=== PATIENT | female | born 1965 | race Caucasian/White ===

== ENCOUNTER 2022-03-23 22:34 | Emergency (ER) | payer OTHER ==
[2022-03-24 00:56] LABS: BASOPHIL 0.2 % (0-2); EOSINOPHIL 5.6 % (0-5); HCT 45.6 % (37.0-47.0); HGB 14.7 g/dl (12.5-16.0); LYMPHOCYTE 20.9 % (15-48); MCH 29.6 pg (25.0-31.0); MCHC 32.2 g/dL (32.0-36.0); MCV 91.9 fL (78.0-100.0); MONOCYTE 7.3 % (0-12); MPV 9.3 fL (6.0-9.5); NEUTROPHIL 65.7 % (41-80); NRBC 0; PLT 230 K/uL (150-400); RBC 4.96 M/uL (4.20-5.40); RDW 13.2 % (11.5-14.0); WBC 8.6 K/uL (4.0-10.5)
[2022-03-24 01:05] LABS: BILIRUBIN NEGATIVE (NEGATIVE); BLOOD TRACE-INTACT Ery/uL (NEGATIVE); CLARITY CLEAR (CLEAR); COLOR YELLOW (YELLOW); GLUCOSE (U) NORMAL (NORMAL); LEUKOCYTES TRACE Leu/uL (NEGATIVE); NITRITE NEGATIVE (NEGATIVE); PROTEIN NEGATIVE (NEGATIVE); SPECIFIC GRAVITY <=1.005 (1.001-1.030); UROBILINOGEN 0.2 mg/dL (0.2-1.0)
[2022-03-24 01:08] LABS: BACTERIA TRACE; URINARY WBC RARE
[2022-03-24 01:19] LABS: ALBUMIN 3.8 g/dL (3.4-5.0); BILIRUBIN - TOTAL 0.3 mg/dL (0.2-1.0); BUN/CREAT RATIO (CALC) 20.8 RATIO; CREATININE 0.77 mg/dL (0.51-0.95); GLOBULIN (CALCULATION) 3.8 g/dL; POTASSIUM 4.3 mmol/L (3.5-5.1); TOTAL PROTEIN 7.6 g/dL (6.4-8.2)
[2022-03-24 01:31] LABS: CORONAVIRUS 2019 SARS-COV-2 NEGATIVE (NEGATIVE); INFLUENZA A NAA NEGATIVE (NEGATIVE)
[2022-03-24] MEDS ORDERED: MEDROL 4MG DOSEP4 MG PO (02:20)
[2022-03-24] MEDS ORDERED: NORCO 5-325 TA1 EACH PO (02:21)
== END 2022-03-24 02:49 | disposition home or self-care (01) ==
LOC: FER 22:34
PROVIDERS: Internal Medicine
DX: R07.89 Other chest pain (principal); J45.909 Unspecified asthma, uncomplicated; Z20.822 Contact with and (suspected) exposure to COVID-19; Z28.310 Unvaccinated for COVID-19
CPT/HCPCS: 36415; 71250; 80053; 81001; 83690; 83880; 84145; 84484; 85025; 93005; J1100; U0002